=== PATIENT | male | born 1955 | race Caucasian/White ===

== ENCOUNTER 2017-05-25 18:02 | Emergency (ER) | payer BC ==
[2017-05-25] MEDS ORDERED: Aspirin 81 MG Tab.Chew PO ONE (18:17)
[2017-05-25] MEDS ORDERED: Sodium Chloride 0.9% 10 ML Syringe FLUSH PRN (18:18)
--- NOTE | 2017-05-25 18:26 | EDM.PDOC ---
ED HPI GENERAL MEDICAL PROBLEM - General Chief Complaint: Chest Pain Stated Complaint: CHEST PAIN, DIZZY Time Seen by Provider: 05/25/17 18:15 Source of Information: Reports: Patient, Old Records History Limitations: Reports: No Limitations - History of Present Illness INITIAL COMMENTS - FREE TEXT/NARRATIVE: 62 yo male presents with a complaint of chest pain since about 1630h today that began while stacking wood at work. He felt like he might pass out at times. Bryan like his heart was beating faster than usual. He was SOB, but does not report nausea or diaphoresis. He has a strong FHx of CAD, but no personal hx. He has HTN, but no DM and is not sure about cholesterol levels. He has not smoked since he was in his early 20's. Both parents and a younger brother had NV 's. He has not missed any of his BP meds lately. Onset: Today Onset Date: 05/25/17 Onset Time: 16:25 Duration: Minutes:, Improving (now with rest.) Location: Reports: Chest Quality: Reports: Pressure Severity: Moderate Improves with: Reports: Rest Worsens with: Reports: Movement (exercise) Context: Reports: Other (strong FHx of CAD) Associated Symptoms: Reports: Chest Pain, Shortness of Breath. Denies: Diaphoresis, Fever/Chills, Nausea/Vomiting, Rash Treatments EMERGENCY ROOM PHYSICIAN: Reports: Other (see below) (none) Left Chest Pain Score (Numeric/FACES): 8 - Related Data Allergies Allergy/AdvReac Type Severity Reaction Status Date / Time No Known Allergies Allergy Verified 05/25/17 18:14 Home Meds: Home Meds *Alegera 1 tab PO DAILY 02/25/13 [History] Ranitidine [Zantac] 75 mg PO DAILY 02/25/13 [History] Fluticasone Propionate [Fluticasone Propionate] 1 spray JAMES BID 04/06/15 [ History] Triamterene/Hydrochlorothiazid [Triamterene-HCTZ 37.5-25 MG] 1 tab PO DAILY [History] Past Medical History - Past Health History Medical/Surgical History: Denies Medical/Surgical History HEENT History: Reports: Allergic Rhinitis, Impaired Vision Cardiovascular History: Reports: Hypertension Gastrointestinal History: Reports: GERD Musculoskeletal History: Reports: Fracture - Infectious Disease History Infectious Disease History: Reports: Measles, Mumps - Past Surgical History HEENT Surgical History: Reports: Tonsillectomy Social & Family History - Family History HEENT: Reports: Cataract, Hearing Impairment Cardiac: Reports: CAD, Hypertension Respiratory: Reports: None : Reports: None Musculoskeletal: Reports: None - Tobacco Use Smoking Status *Q: Former Smoker Used Tobacco, but Quit: Yes Month Tobacco Last Used: 0 Second Hand Smoke Exposure: Yes - Alcohol Use Days Per Week of Alcohol Use: 0 - Recreational Drug Use Recreational Drug Use: No ED ROS GENERAL - Review of Systems Review Of Systems: See Below Constitutional: Reports: No Symptoms HEENT: Reports: No Symptoms Respiratory: Reports: Shortness of Breath. Denies: Wheezing, Pleuritic Chest Pain, Cough, Sputum, Hemoptysis Cardiovascular: Reports: Chest Pain Endocrine: Reports: No Symptoms GI/Abdominal: Reports: No Symptoms : Reports: No Symptoms Musculoskeletal: Reports: No Symptoms Skin: Reports: No Symptoms Neurological: Reports: No Symptoms Psychiatric: Reports: No Symptoms ED EXAM, GENERAL - Physical Exam Exam: See Below Exam Limited By: No Limitations General Appearance: Alert, WD/WN, No Apparent Distress Eye Exam: Bilateral Eye: Normal Inspection Ears: Normal External Exam, Normal Canal, Hearing Grossly Normal Ear Exam: Bilateral Ear: Auricle Normal, Canal Normal Nose: Normal Inspection, Normal Mucosa, No Blood Throat/Mouth: Normal Inspection, Normal Lips, Normal Oropharynx, Normal Voice, No Airway Compromise Head: Atraumatic, Normocephalic Neck: Normal Inspection Respiratory/Chest: No Respiratory Distress, Lungs Clear, Normal Breath Sounds, No Accessory Muscle Use, Chest Non-Tender Cardiovascular: Regular Rate, Rhythm, No Edema GI/Abdominal: Normal Bowel Sounds, Soft, Non-Tender, No Distention Back Exam: Normal Inspection. No: CVA Tenderness (R), CVA Tenderness (L) Extremities: Normal Inspection, Normal Range of Motion, Non-Tender, No Pedal Edema Neurological: Alert, Oriented, CN II-XII Intact, Normal Cognition, No Motor/ Sensory Deficits Psychiatric: Normal Affect, Normal Mood Skin Exam: Warm, Dry, Intact, Normal Color, No Rash Lymphatic: No Adenopathy EKG INTERPRETATION EKG Date: 05/25/17 Time: 18:00 Rhythm: NSR Rate (Beats/Min): 97 [place]: Normal P-Wave: Present QRS: Normal ST-T: Normal QT: Normal Comparison: NA - No Prior EKG EKG Interpretation Comments: unifocal PVC present. Course - Vital Signs Text/Narrative:: Dr. Blue accepted at [facility]. ALS transfer planned. Last Recorded V/S: Last Vital Signs Temp 34.7 C L 05/25/17 18:10 Pulse 92 05/25/17 19:18 Resp 16 05/25/17 18:44 BP 112/69 05/25/17 19:18 Pulse Ox 97 05/25/17 18:44 - Orders/Labs/Meds Orders: Active Orders 24 hr Category Date Time Status Cardiac Monitoring [RC] .As Directed Care 05/25/17 18:12 Active EKG Documentation Completion [RC] ASDIRECTED Care 05/25/17 18:12 Active Oxygen Therapy Adult [Oxygen Therapy, ED] [RC] Care 05/25/17 18:38 Active ASDIRECTED Chest 1V Frontal [CR] Stat Exams 05/25/17 18:18 Taken Heparin Sodium/D5W [Heparin 25,000 Units in D5W 500 ML] Med 05/25/17 19:00 Active 25,000 units in 500 ml IV TITRATE Lactated Ringers [Ringers, Lactated] 1,000 ml Med 05/25/17 19:27 Ordered IV BOLUS Nitroglycerin [Nitrostat] Med 05/25/17 18:17 Active 0.4 mg SL Q5M PRN Sodium Chloride 0.9% [Saline Flush] Med 05/25/17 18:18 Active 10 ml FLUSH ASDIRECTED PRN Saline Lock Insert [OM.PC] Routine Oth 05/25/17 18:18 Ordered EKG 12 Lead [EK] Routine Ther 05/25/17 18:12 Ordered Medication Orders Heparin Sodium/Dextrose (Heparin 25,000 Units In D5w 500 Ml) 25,000 units in 500 mls @ 20 mls/hr IV TITRATE MARTI PRN Reason: 1,000 UNITS/HR Last Admin: 05/25/17 19:17 Dose: 1,000 units/hr, 20 mls/hr Nitroglycerin (Nitrostat) 0.4 mg SL Q5M PRN PRN Reason: Chest Pain Last Admin: 05/25/17 18:38 Dose: 0.4 mg Admin: 05/25/17 18:28 Dose: 0.4 mg Sodium Chloride (Saline Flush) 10 ml FLUSH ASDIRECTED PRN PRN Reason: Keep Vein Open Last Admin: 05/25/17 18:28 Dose: 10 ml Labs: Laboratory Tests 05/25/17 05/25/17 05/25/17 Range/Units 18:18 18:31 19:00 WBC 10.6 (4.5-11.0) K/uL RBC 5.34 (4.30-5.90) M/uL Hgb 17.1 H (12.0-15.0) g/dL Hct 49.4 (40.0-54.0) % MCV 93 (80-98) fL MCH 32 H (27-31) pg MCHC 35 (32-36) % Plt Count 249 (150-400) K/uL Sodium 142 (140-148) mmol/L Potassium 3.6 (3.6-5.2) mmol/L Chloride 104 (100-108) mmol/L Carbon Dioxide 25 (21-32) mmol/L Anion Gap 13.5 (5.0-14.0) mmol/L BUN 17 (7-18) mg/dL Creatinine 1.3 (0.8-1.3) mg/dL Est Cr Clr Drug Dosing 60.43 mL/min Estimated GFR (MDRD) 56 L (>60) Glucose 122 H (74-106) mg/dL Calcium 9.6 (8.5-10.1) mg/dL Troponin I < 0.017 (0.000-0.056) ng/mL Urine Color Yellow Urine Appearance Clear Urine pH 6.5 (4.5-8.0) Ur Specific [place] 1.015 (1.008-1.030) Urine Protein Negative (NEGATIVE) mg/dL Urine Glucose (UA) Normal (NEGATIVE) mg/dL Urine Ketones Negative (NEGATIVE) mg/dL Urine Occult Blood Negative (NEGATIVE) Urine Nitrite Negative (NEGAITVE) Urine Bilirubin Negative (NEGATIVE) Urine Urobilinogen Normal (NORMAL) mg/dL Ur Leukocyte Esterase Negative (NEGATIVE) Urine RBC Not seen (0-5) Urine WBC 0-5 (0-5) Ur Epithelial Cells Rare Amorphous Sediment Not seen Urine Bacteria Rare Urine Mucus Few Meds: Medications Generic Name Dose Route Start Last Admin Trade Name Freq PRN Reason Stop Dose Admin Heparin Sodium/Dextrose 25,000 units in 500 mls @ 20 mls/hr 02/12/18 19:00 19:17 Heparin 25,000 Units In D5w 500 Ml IV 1,000 units/hr TITRATE MARTI 20 mls/hr 1,000 UNITS/HR Administration Nitroglycerin 0.4 mg 05/25/17 18:17 05/25/17 18:38 Nitrostat SL 0.4 mg Q5M PRN Administration Chest Pain Sodium Chloride 10 ml 05/25/17 18:18 05/25/17 18:28 Saline Flush FLUSH 10 ml ASDIRECTED PRN Administration Keep Vein Open Discontinued Medications Generic Name Dose Route Start Last Admin Trade Name Freq PRN Reason Stop Dose Admin Aspirin 324 mg 05/25/17 18:17 05/25/17 18:27 Aspirin PO 05/25/17 18:18 324 mg ONETIME ONE Administration Clopidogrel Bisulfate 600 mg 05/25/17 18:57 05/25/17 19:19 Plavix PO 05/25/17 18:58 600 mg ONETIME ONE Administration Heparin Sodium (Porcine) 5,000 units 05/25/17 18:55 05/25/17 19:18 Heparin Sodium IVPUSH 05/25/17 18:56 5,000 units ONETIME ONE Administration Metoprolol Tartrate 50 mg 05/25/17 18:58 05/25/17 19:18 Lopressor PO 05/25/17 18:59 50 mg ONETIME ONE Administration Morphine Sulfate 2 mg 05/25/17 18:57 05/25/17 19:18 Morphine IVPUSH 05/25/17 18:58 2 mg ONETIME ONE Administration Departure - Departure Time of Disposition: 19:45 Disposition: DC/Tfer to Acute Hospital 02 Reason for Transfer *Q: Other Condition: Fair Clinical Impression: Unstable angina pectoris Referrals: PCP,None [Primary Care Provider] - Forms: ED Department Discharge - My Orders Last 24 Hours: My Active Orders 05/25/17 18:12 Cardiac Monitoring [RC] .As Directed EKG Documentation Completion [RC] ASDIRECTED EKG 12 Lead [EK] Routine 05/25/17 18:17 Nitroglycerin [Nitrostat] 0.4 mg SL Q5M PRN 05/25/17 18:18 Chest 1V Frontal [CR] Stat Sodium Chloride 0.9% [Saline Flush] 10 ml FLUSH ASDIRECTED PRN Saline Lock Insert [OM.PC] Routine 05/25/17 18:38 Oxygen Therapy Adult [Oxygen Therapy, ED] [RC] ASDIRECTED 05/25/17 19:00 Heparin Sodium/D5W [Heparin 25,000 Units in D5W 500 ML] 25,000 units in 500 ml IV TITRATE 05/25/17 19:27 Lactated Ringers [Ringers, Lactated] 1,000 ml IV BOLUS - Assessment/Plan Last 24 Hours: My Active Orders 05/25/17 18:12 Cardiac Monitoring [RC] .As Directed EKG Documentation Completion [RC] ASDIRECTED EKG 12 Lead [EK] Routine 05/25/17 18:17 Nitroglycerin [Nitrostat] 0.4 mg SL Q5M PRN 05/25/17 18:18 Chest 1V Frontal [CR] Stat Sodium Chloride 0.9% [Saline Flush] 10 ml FLUSH ASDIRECTED PRN Saline Lock Insert [OM.PC] Routine 05/25/17 18:38 Oxygen Therapy Adult [Oxygen Therapy, ED] [RC] ASDIRECTED 05/25/17 19:00 Heparin Sodium/D5W [Heparin 25,000 Units in D5W 500 ML] 25,000 units in 500 ml IV TITRATE 05/25/17 19:27 Lactated Ringers [Ringers, Lactated] 1,000 ml IV BOLUS
[2017-05-25] MEDS: Nitroglycerin 0.4 MG Tab.SL SL PRN ×2 (18:28→18:38)
[2017-05-25] MEDS ORDERED: Heparin Sodium 5,000 Units/ML Vial IVPUSH ONE (18:55)
[2017-05-25] MEDS ORDERED: Clopidogrel 75 MG Tab PO ONE (18:57)
[2017-05-25] MEDS ORDERED: Morphine 2 MG/ML Syringe IVPUSH ONE (18:57)
[2017-05-25] MEDS ORDERED: Metoprolol Tartrate 50 MG Tab PO ONE (18:58)
[2017-05-25] MEDS ORDERED: Heparin Sodium/D5W 25,000 UNITS/500 ML BAG IV SCH (19:00)
[2017-05-25] MEDS ORDERED: Lactated Ringers 1,000 ML IV ONE (19:27)
[2017-05-25 20:15] VITALS: BP 123/92
--- NOTE | 2017-05-26 08:43 | CR ---
Chest 1V Frontal HISTORY: chest pain COMPARISON: None FINDINGS: Portable chest, 1827 hours. Lungs appear clear and normally aerated. Cardiomediastinal silhouette is within normal limits. No vas cular redistribution or pleural fluid can be seen. Bony structures and soft tissues are unremarkable. IMPRESSION: No acute chest abnormality identified.
== END 2017-05-25 20:15 ==
LOC: JP.ED 18:02
DX: I20.0 Unstable angina (principal); K21.9 Gastro-esophageal reflux disease without esophagitis; I10 Essential (primary) hypertension; Z87.891 Personal history of nicotine dependence; Z79.899 Other long term (current) drug therapy
CPT/HCPCS: 36415; 71045; 80048; 81001; 84484; 85027; 93005; 96365; 96375; 99285; A9270; J1644; J2270; J7050; J7120

== ENCOUNTER 2018-11-30 09:34 | Emergency (ER) | payer BC, OTHER ==
[2018-11-30] MEDS ORDERED: Sodium Chloride 0.9% 10 ML Syringe FLUSH PRN (09:57)
[2018-11-30] MEDS ORDERED: Nitroglycerin 0.4 MG Tab.SL SL PRN (09:57)
[2018-11-30] MEDS ORDERED: Aspirin 81 MG Tab.Chew PO ONE (09:57)
[2018-11-30] MEDS ORDERED: Morphine 2 MG/ML Syringe IVPUSH PRN (09:57)
[2018-11-30] MEDS ORDERED: Aspirin 81 MG Tab.Chew ONE (10:02)
--- NOTE | 2018-11-30 10:06 | EDM.PDOC ---
ED HPI GENERAL MEDICAL PROBLEM - General Chief Complaint: Chest Pain Stated Complaint: CHEST PAIN, CARDIAC HISTORY Time Seen by Provider: 11/30/18 09:50 Source of Information: Reports: Patient, RN Notes Reviewed History Limitations: Reports: No Limitations - History of Present Illness INITIAL COMMENTS - FREE TEXT/NARRATIVE: 63-year-old gentleman presents to the emergency department today with complaint of chest pain, he does have a history of coronary artery disease with myocardial infarction in 2018. This particular event chest pain started early this morning around 7:30 the pain does wax and wane at this time he is chest pain-free however the pain does get intense rates it 6 out of 10. He describes a flushing sensation no diaphoresis no shortness of breath no nausea or vomiting chest Pain Score (Numeric/FACES): 6 - Related Data Allergies Allergy/AdvReac Type Severity Reaction Status Date / Time No Known Allergies Allergy Verified 11/30/18 09:45 Home Meds: Home Meds *Alegera 1 tab PO DAILY 02/25/13 [History] Ranitidine [Zantac] 75 mg PO DAILY 02/25/13 [History] Triamterene/Hydrochlorothiazid [Triamterene-HCTZ 37.5-25 MG] 1 tab PO DAILY [History] Metoprolol Tartrate 12.5 mg PO BID 11/30/18 [History] Past Medical History HEENT History: Reports: Allergic Rhinitis, Impaired Vision Cardiovascular History: Reports: CAD, Hypertension, [place], Stents Gastrointestinal History: Reports: GERD Musculoskeletal History: Reports: Fracture - Infectious Disease History Infectious Disease History: Reports: Measles, Mumps - Past Surgical History HEENT Surgical History: Reports: Tonsillectomy Social & Family History - Family History HEENT: Reports: Cataract, Hearing Impairment Cardiac: Reports: CAD, Hypertension Respiratory: Reports: None : Reports: None Musculoskeletal: Reports: None - Tobacco Use Smoking Status *Q: Never Smoker - Recreational Drug Use Recreational Drug Use: No ED ROS GENERAL - Review of Systems Review Of Systems: See Below Constitutional: Reports: No Symptoms HEENT: Reports: No Symptoms Respiratory: Reports: No Symptoms Cardiovascular: Reports: Chest Pain, Lightheadedness GI/Abdominal: Reports: No Symptoms : Reports: No Symptoms Musculoskeletal: Reports: No Symptoms Skin: Reports: No Symptoms Neurological: Reports: No Symptoms ED EXAM, GENERAL - Physical Exam Exam: See Below Exam Limited By: No Limitations General Appearance: Alert, WD/WN, No Apparent Distress Neck: Normal Inspection, Supple, Non-Tender, Full Range of Motion Respiratory/Chest: No Respiratory Distress, Lungs Clear, Normal Breath Sounds, No Accessory Muscle Use, Chest Non-Tender Cardiovascular: Regular Rate, Rhythm, No Murmur GI/Abdominal: Soft, Non-Tender Extremities: Pedal Edema Course - Vital Signs Last Recorded V/S: Last Vital Signs Temp 97.3 F 11/30/18 09:42 Pulse 51 L 11/30/18 11:18 Resp 21 H 11/30/18 11:18 BP 149/76 H 11/30/18 11:18 Pulse Ox 96 11/30/18 11:18 - Orders/Labs/Meds Orders: Active Orders 24 hr Category Date Time Status Cardiac Monitoring [RC] .As Directed Care 11/30/18 09:57 Active EKG Documentation Completion [RC] ASDIRECTED Care 11/30/18 10:00 Active Morphine Med 11/30/18 09:57 Active 2 mg IVPUSH Q10M PRN Nitroglycerin [Nitrostat] Med 11/30/18 09:57 Active 0.4 mg SL Q5M PRN Sodium Chloride 0.9% [Saline Flush] Med 11/30/18 09:57 Active 10 ml FLUSH ASDIRECTED PRN Peripheral IV Insertion Adult [OM.PC] Stat Oth 11/30/18 09:57 Ordered EKG 12 Lead [EK] Stat Ther 11/30/18 10:00 Ordered Medication Orders Morphine Sulfate (Morphine) 2 mg IVPUSH Q10M PRN PRN Reason: Chest Pain Stop: 12/01/18 09:59 Nitroglycerin (Nitrostat) 0.4 mg SL Q5M PRN PRN Reason: Chest Pain Stop: 12/01/18 09:59 Sodium Chloride (Saline Flush) 10 ml FLUSH ASDIRECTED PRN PRN Reason: Keep Vein Open Labs: Laboratory Tests 11/30/18 11/30/18 11/30/18 Range/Units 09:57 09:57 12:54 WBC 9.7 (4.5-11.0) K/uL RBC 4.54 (4.30-5.90) M/uL Hgb 14.5 D (12.0-15.0) g/dL Hct 43.3 (40.0-54.0) % MCV 95 (80-98) fL MCH 32 H (27-31) pg MCHC 34 (32-36) % Plt Count 216 (150-400) K/uL Neut % (Auto) 56 (36-66) % Lymph % (Auto) 23 L (24-44) % [place] % (Auto) 7 H (2-6) % Eos % (Auto) 15 H (2-4) % Baso % (Auto) 0 (0-1) % Sodium 140 (140-148) mmol/L Potassium 4.5 (3.6-5.2) mmol/L Chloride 106 (100-108) mmol/L Carbon Dioxide 28 (21-32) mmol/L Anion Gap 5.8 (5.0-14.0) mmol/L BUN 20 H (7-18) mg/dL Creatinine 1.4 H (0.8-1.3) mg/dL Est Cr Clr Drug Dosing 55.41 mL/min Estimated GFR (MDRD) 52 L (>60) Glucose 91 (74-106) mg/dL Calcium 9.8 (8.5-10.1) mg/dL Total Bilirubin 0.2 (0.2-1.0) mg/dL AST 31 (15-37) U/L ALT 33 (12-78) U/L Alkaline Phosphatase 83 (46-116) U/L CK-MB (CK-2) 5.3 H* (0-3.6) mg/mL Troponin I < 0.017 < 0.017 (0.000-0.056) ng/mL Total Protein 6.9 (6.4-8.2) g/dL Albumin 4.0 (3.4-5.0) g/dL Globulin 2.9 (2.3-3.5) g/dL Albumin/Globulin Ratio 1.4 (1.2-2.2) Meds: Medications Generic Name Dose Route Start Last Admin Trade Name Freq PRN Reason Stop Dose Admin Morphine Sulfate 2 mg 11/30/18 09:57 Morphine IVPUSH 12/01/18 09:59 Q10M PRN Chest Pain Nitroglycerin 0.4 mg 11/30/18 09:57 Nitrostat SL 12/01/18 09:59 Q5M PRN Chest Pain Sodium Chloride 10 ml 11/30/18 09:57 Saline Flush FLUSH ASDIRECTED PRN Keep Vein Open Discontinued Medications Generic Name Dose Route Start Last Admin Trade Name Brian PRN Reason Stop Dose Admin Aspirin 324 mg 11/30/18 09:57 11/30/18 10:06 Aspirin PO 11/30/18 09:58 324 mg ONETIME ONE Administration Aspirin Confirm 11/30/18 10:02 11/30/18 10:15 Aspirin Administered 11/30/18 10:03 Not Given Dose 324 mg .ROUTE .STFasterPants-MED ONE - Re-Assessments/Exams Free Text/Narrative Re-Assessment/Exam: 11/30/18 10:47 heart score 5 Departure - Departure Time of Disposition: 14:06 Disposition: Home, Self-Care 01 Condition: Fair Clinical Impression: Chest pain Qualifiers: Chest pain type: unspecified Qualified Code(s): R07.9 - Chest pain, unspecified Referrals: Harrison Aguayo MD [Primary Care Provider] - Forms: ED Department Discharge, ED Return to Work/School Form Additional Instructions: Please report for your stress test on Thursday the results will go to Dr. Aguayo for further evaluation please be in contact with Dr. Aguayo for the plan - My Orders Last 24 Hours: My Active Orders 11/30/18 09:57 Cardiac Monitoring [RC] .As Directed Morphine 2 mg IVPUSH Q10M PRN Nitroglycerin [Nitrostat] 0.4 mg SL Q5M PRN Sodium Chloride 0.9% [Saline Flush] 10 ml FLUSH ASDIRECTED PRN Peripheral IV Insertion Adult [OM.PC] Stat 11/30/18 10:00 EKG Documentation Completion [RC] ASDIRECTED EKG 12 Lead [EK] Stat - Assessment/Plan Last 24 Hours: My Active Orders 11/30/18 09:57 Cardiac Monitoring [RC] .As Directed Morphine 2 mg IVPUSH Q10M PRN Nitroglycerin [Nitrostat] 0.4 mg SL Q5M PRN Sodium Chloride 0.9% [Saline Flush] 10 ml FLUSH ASDIRECTED PRN Peripheral IV Insertion Adult [OM.PC] Stat 11/30/18 10:00 EKG Documentation Completion [RC] ASDIRECTED EKG 12 Lead [EK] Stat Plan: Assessment Acuity = acute Site and laterality = chest pain Etiology = unclear etiology Manifestations = none] Location of injury = Home Lab values = CBC, CMP were negative except for creatinine is slightly elevated 1.46 consistent with the chronic renal failure stage GII, troponin was negative 2, EKG demonstrates no signs of ischemia chest x-ray unremarkable Plan Because he had a heart score of 5 puts him at moderate risk I did contact his primary care office who is aware of his current situation, the plan is to set him up for a stress test Cardiolite exercise which we're able to secure for Thursday for this upcoming week his primary care provider will receive those results and he will follow up with his primary care after the stress test for further evaluation This note was dictated using [employer] voice recognition software please call with any questions on syntax or grammar.
--- NOTE | 2018-11-30 10:44 | CRLCR ---
INDICATION: Chest pain. COMPARISON: Chest x-ray dated 25 May 2017. FINDINGS: A single portable chest x-ray shows a normal cardiac silhouette. The lungs show no focal pulmonary opacities. Sharp pleural margins. No pneumothorax. IMPRESSION: No evidence of acute pulmonary abnormalities. Dictated by Arpit Bazzi MD @ 11/30/2018 10:42:02 AM Dictated by: Arpit Bazzi MD @ 11/30/2018 10:42:15 (Electronically Signed)
[2018-11-30 11:41] VITALS: BP 149/76; PULSE 51
== END 2018-11-30 14:29 | disposition home or self-care (01) ==
LOC: JP.ED 09:34
DX: R07.9 Chest pain, unspecified (principal); I10 Essential (primary) hypertension; I25.2 Old myocardial infarction; K21.9 Gastro-esophageal reflux disease without esophagitis; Z79.899 Other long term (current) drug therapy
CPT/HCPCS: 36415; 71045; 80053; 82553; 84484; 85025; 93005; 96374; 99285; A9270; 93010; 99283

== ENCOUNTER 2019-01-13 16:20 | Emergency (ER) | payer OTHER ==
[2019-01-13 16:37] VITALS: BP 181/99; PULSE 75
[2019-01-13] MEDS ORDERED: Diphtheria,Pertussis(Acell),Tetanus Vaccine 0.5 ML SDV IM ONE (16:50)
--- NOTE | 2019-01-13 17:03 | EDM.PDOC ---
ED HPI GENERAL MEDICAL PROBLEM - General Chief Complaint: Laceration Stated Complaint: LEFT MIDDLE FINGER CUT Time Seen by Provider: 01/13/19 16:45 Source of Information: Reports: Patient, RN Notes Reviewed History Limitations: Reports: No Limitations - History of Present Illness INITIAL COMMENTS - FREE TEXT/NARRATIVE: 63-year-old gentleman presents emergency department today after trauma at work he accidentally caught his digit #3 left hand in between the blade and a jesus on a band saw, he has amputated the distal aspect of this finger and the other portion of the finger is missing Left Finger-Middle Pain Score (Numeric/FACES): 9 - Related Data Allergies Allergy/AdvReac Type Severity Reaction Status Date / Time No Known Allergies Allergy Verified 01/13/19 17:02 Home Meds: Home Meds Ranitidine [Zantac] 75 mg PO DAILY 02/25/13 [History] Metoprolol Tartrate 12.5 mg PO BID 11/30/18 [History] Loratadine [Claritin] 1 tab PO DAILY 01/13/19 [History] Past Medical History HEENT History: Reports: Allergic Rhinitis, Impaired Vision Cardiovascular History: Reports: CAD, Hypertension, [place], Stents Gastrointestinal History: Reports: GERD Musculoskeletal History: Reports: Fracture - Infectious Disease History Infectious Disease History: Reports: Measles, Mumps - Past Surgical History HEENT Surgical History: Reports: Tonsillectomy Social & Family History - Family History HEENT: Reports: Cataract, Hearing Impairment Cardiac: Reports: CAD, Hypertension Respiratory: Reports: None : Reports: None Musculoskeletal: Reports: None ED ROS GENERAL - Review of Systems Review Of Systems: See Below Musculoskeletal: Reports: Hand Pain Skin: Reports: Wound Neurological: Reports: No Symptoms ED EXAM, SKIN/RASH Exam: See Below Text/Narrative:: examination of the left hand reveals an amputation of digit #3 distal tip he has approximately 3 mm of nailbed remaining there is exposed bone bleeding is controlled radial pulses +2 full range of motall digits Exam Limited By: No Limitations General Appearance: Alert, WD/WN, No Apparent Distress ED SKIN PROCEDURES - Additional/Other Procedure(s) Other (Free Text) Procedure(s): performed a digital block pain control 1.5 mL of 1% lidocaine injected along digit #3 digit was prepped and draped in the usual manner Course - Vital Signs Last Recorded V/S: Last Vital Signs Temp 96.6 F 10/03/19 17:02 Pulse 75 01/13/19 17:02 Resp 16 01/13/19 17:02 BP 181/99 H 01/13/19 17:02 Pulse Ox 97 01/13/19 17:02 - Orders/Labs/Meds Orders: Active Orders 24 hr Category Date Time Status Vaccines to be Administered [RC] PER UNIT ROUTINE Care 01/13/19 16:50 Active Meds: Medications Discontinued Medications Generic Name Dose Route Start Last Admin Trade Name Brian PRN Reason Stop Dose Admin Cefazolin Sodium 1 gm 01/13/19 17:15 01/13/19 17:28 Ancef IM 01/13/19 17:16 1 gm ONETIME ONE Administration Diphtheria/Tetanus/Acell Pertussis 0.5 ml 01/13/19 16:50 01/13/19 17:11 Adacel IM 01/13/19 16:51 0.5 ml .ONCE ONE Administration Lidocaine HCl 5 ml 01/13/19 16:50 01/13/19 17:12 Xylocaine-Mpf 1% INJECT 01/13/19 16:51 5 ml ONETIME ONE Administration Departure - Departure Time of Disposition: 17:44 Disposition: Home, Self-Care 01 Condition: Fair Clinical Impression: Amputation of finger of left hand Qualifiers: Encounter type: initial encounter Qualified Code(s): S68.119A - Complete traumatic metacarpophalangeal amputation of unspecified finger, initial encounter - Discharge Information Referrals: Harrison Aguayo MD [Primary Care Provider] - Forms: ED Department Discharge Additional Instructions: please request report to the [facility] at 9 AM in the morning. He will meet with Navneet Barr from orthopedics do not eat anything past midnight - My Orders Last 24 Hours: My Active Orders 01/13/19 16:50 Vaccines to be Administered [RC] PER UNIT ROUTINE - Assessment/Plan Last 24 Hours: My Active Orders 01/13/19 16:50 Vaccines to be Administered [RC] PER UNIT ROUTINE Plan: Assessment Acuity = acute Site and laterality = amputation digit #3 left hand distal phalange Etiology = trauma with a bandsaw Manifestations = pain Location of injury = work Lab values = x-rays describe a fracture above Plan called discussed case with orthopedics on-call at 1700 spoke with Navneet Barr kindly accepted the patient he has been given Ancef 1 g, tetanus was updated today, digital block did perform adequate pain control prescription written for hydrocodone 5/325 one tab by mouth 3 times a day per total #10he will report to [facility] at 9 AM in the morning nothing by mouth for surgical revision] This note was dictated using [employer] voice recognition software please call with any questions on syntax or grammar.
--- NOTE | 2019-01-13 17:12 | CRLCR ---
Indication: Trauma. Technique: Three views of the left 3rd finger were obtained. Comparison: None Findings: Amputation of the distal phalanx is identified at the mid-diaphysis. The joint spaces are well maintained. No other fractures are identified. Impression: Amputation of the distal phalanx of the left 3rd finger at the level of the mid diaphysis. Dictated by Krista Vann MD @ Jan 13 2019 5:10PM Signed by Dr. Krista Vann @ Jan 13 2019 5:11PM
[2019-01-13] MEDS ORDERED: ceFAZolin 1 GM Vial IM ONE (17:15)
== END 2019-01-13 18:12 | disposition home or self-care (01) ==
LOC: JP.ED 16:20
DX: S68.113A Complete traumatic metacarpophalangeal amputation of left middle finger, initial encounter (principal); Z23 Encounter for immunization; I10 Essential (primary) hypertension; K21.9 Gastro-esophageal reflux disease without esophagitis; I25.10 Atherosclerotic heart disease of native coronary artery without angina pectoris; I25.2 Old myocardial infarction; Z79.899 Other long term (current) drug therapy; W23.0XXA Caught, crushed, jammed, or pinched between moving objects, initial encounter; Y99.0 Civilian activity done for income or pay
CPT/HCPCS: 64450; 73140-F2; 90471; 90715; 96372; 99283-25; J0690; J2001

== ENCOUNTER 2020-02-07 09:04 | Day surgery (SDC) | payer OTHER ==
[~2020-02-07 09:04] MED LIST: Dextrose 5%-Lactated Ringers 1,000 ML IV SCH
[2020-02-07] MEDS ORDERED: Dextrose 5%-Lactated Ringers 1,000 ML IV SCH (09:15)
[2020-02-07] MEDS ORDERED: Midazolam 1 MG/ML 2 ML SDV ONE (09:49)
[2020-02-07] MEDS ORDERED: fentaNYL 100 MCG/2 ML SDV ONE (09:49)
[2020-02-07] MEDS ORDERED: Propofol 200 MG/20 ML SDV ONE (09:49)
[2020-02-07 12:45] VITALS: BP 171/89; PULSE 53
--- NOTE | 2020-02-14 15:45 | OR ---
DATE OF PROCEDURE: 02/07/2020 SURGEON: Lio Pagan MD PREOPERATIVE DIAGNOSIS: Indication for screening colonoscopy. POSTOPERATIVE DIAGNOSIS: Normal screening colonoscopy. OPERATIVE PROCEDURE: Flexible colonoscopy. ANESTHESIA: IV sedation. INDICATION FOR PROCEDURE: This is a 64-year-old presenting for a followup screening colonoscopy. The patient has no family or personal history of colonic neoplasia. He did have a colonoscopy in 2012, at which time he was being worked up for anemia. Plan is to proceed with colonoscopy with biopsies and/or polypectomy as indicated. Potential risks including bleeding and perforation were discussed, and the patient wishes to proceed. DETAILS OF PROCEDURE: The patient was taken to the operating room and placed in a left lateral decubitus position. IV sedation was administered, after which the initial digital rectal exam was performed and was unremarkable. Colonoscope was then passed into the rectum with retroflexion revealing uncomplicated hemorrhoidal columns. The scope was eventually passed to the level of the cecum. The prep was fairly good with only a small amount of liquid and some scattered solid stool present. To that level, no abnormalities were noted. There were no areas of colitis, no diverticula, no polyps or other signs of neoplasia. The scope was then withdrawn and the above procedure concluded. The patient was taken to the recovery room in satisfactory condition. With the absence of new symptoms or signs, the patient's next colonoscopy should be scheduled roughly in 10 years. Lio Pagan MD /[id number]
== END 2020-02-07 13:21 | disposition home or self-care (01) ==
LOC: JP.SDS 09:04
PROVIDERS: ATTEND Surgery
DX: Z12.11 Encounter for screening for malignant neoplasm of colon (principal); K64.9 Unspecified hemorrhoids; I10 Essential (primary) hypertension; I25.10 Atherosclerotic heart disease of native coronary artery without angina pectoris; K21.9 Gastro-esophageal reflux disease without esophagitis
CPT/HCPCS: 45378; J2250; J2704; J3010; J7121

== ENCOUNTER 2022-03-13 13:13 | Emergency (ER) | payer MEDICARE ==
[2022-03-13 13:53] VITALS: BP 183/94; PULSE 51
[2022-03-13] MEDS ORDERED: Ketorolac 30 MG/ML SDV IM ONE (14:20)
== END 2022-03-13 14:41 | disposition home or self-care (01) ==
LOC: JP.ED 13:13
DX: M54.50 Low back pain, unspecified (principal); I25.10 Atherosclerotic heart disease of native coronary artery without angina pectoris; I10 Essential (primary) hypertension; I25.2 Old myocardial infarction; K21.9 Gastro-esophageal reflux disease without esophagitis; Z87.891 Personal history of nicotine dependence; Z79.82 Long term (current) use of aspirin; Z79.899 Other long term (current) drug therapy
CPT/HCPCS: 81001; 96372; 99283

== ENCOUNTER 2022-03-24 04:55 | Emergency (ER) | payer MEDICARE ==
[2022-03-24] MEDS ORDERED: Sodium Chloride 0.9% 10 ML Syringe FLUSH PRN (05:00)
[2022-03-24] MEDS: Nitroglycerin 0.4 MG Tab.SL SL PRN ×2 (05:20→05:30)
[2022-03-24 05:30] LABS: ESTIMATED GFR 44 mL/min (>60); TROPONIN I HIGH SENSITIVITY 9.4 pg/mL (<=60.3)
[2022-03-24 05:49] LABS: CORONAVIRUS COVID-19 NAA NEGATIVE (NEGATIVE)
[2022-03-24 07:09] VITALS: PULSE 53
[2022-03-24 08:32] VITALS: BP 146/75
== END 2022-03-24 08:49 | disposition home or self-care (01) ==
LOC: JP.ED 04:55
DX: I25.10 Atherosclerotic heart disease of native coronary artery without angina pectoris (principal); R07.89 Other chest pain; I10 Essential (primary) hypertension; I25.2 Old myocardial infarction; Z79.82 Long term (current) use of aspirin; Z20.822 Contact with and (suspected) exposure to COVID-19
CPT/HCPCS: 0241U; 36415; 71046; 80053; 84484; 85025; 85610; 85730; 93005; 99285; A9270; J3490

== ENCOUNTER 2022-06-25 03:30 | Emergency (ER) | payer MEDICARE ==
[~2022-06-25 03:30] MED LIST changes: -Dextrose 5%-Lactated Ringers 1,000 ML IV SCH; +Ketorolac 30 MG/ML SDV IVPUSH ONE
[2022-06-25] MEDS ORDERED: Ketorolac 30 MG/ML SDV ONE (04:13)
[2022-06-25] MEDS ORDERED: Sodium Chloride 0.9% 1,000 ML IV SCH (04:15)
[2022-06-25] MEDS ORDERED: Ketorolac 30 MG/ML SDV IVPUSH ONE (04:15)
[2022-06-25 06:02] VITALS: BP 141/90; PULSE 91
[2022-06-25] MEDS ORDERED: Iopamidol 612 MG/ML 100 ML Bottle IV ONE (06:12)
[2022-06-25] MEDS ORDERED: Sodium Chloride 0.9% 10 ML Syringe FLUSH ONE (06:12)
[2022-06-25] MEDS ORDERED: Sodium Chloride 0.9% 50 ML IV ONE (06:12)
[2022-06-25 06:31] LABS: ESTIMATED GFR 41 mL/min (>60); TROPONIN I HIGH SENSITIVITY 34.6 pg/mL (<=60.3)
[2022-06-25] MEDS ORDERED: Sodium Chloride 0.9% 10 ML Syringe FLUSH PRN (06:32)
== END 2022-06-25 07:11 | disposition home or self-care (01) ==
LOC: JP.ED 05:41
DX: K29.70 Gastritis, unspecified, without bleeding (principal); F17.200 Nicotine dependence, unspecified, uncomplicated
CPT/HCPCS: 36415; 74177; 80053; 84484; 85025; 96361; 96374; 99283; 99284; J1885; J3490; J7030; Q9967

== ENCOUNTER 2022-11-07 07:47 | Day surgery (SDC) | payer MEDICARE ==
[~2022-11-07 07:47] MED LIST changes: -Ketorolac 30 MG/ML SDV IVPUSH ONE; +Midazolam 1 MG/ML 2 ML SDV ONE; +Propofol 200 MG/20 ML SDV ONE; +fentaNYL 50 MCG/ML SDV ONE
[2022-11-07] MEDS ORDERED: Lactated Ringers 1,000 ML IV SCH (08:15)
[2022-11-07] MEDS ORDERED: Lactated Ringers 500 ML IV SCH (11:15)
[2022-11-07] MEDS ORDERED: Sodium Chloride 0.9% 75 ML IV ONE (11:42)
[2022-11-07] MEDS ORDERED: Sodium Chloride 0.9% 10 ML Syringe FLUSH PRN (11:42)
[2022-11-07] MEDS ORDERED: Iopamidol 755 Mg/ML 100 ML Bottle IV SCH (11:45)
[2022-11-07 12:19] VITALS: BP 146/86; PULSE 50
== END 2022-11-07 13:15 | disposition home or self-care (01) ==
LOC: JP.SDS 07:47
PROVIDERS: ATTEND Student in an Organized Health Care Education/Training Program
DX: K29.50 Unspecified chronic gastritis without bleeding (principal); K31.5 Obstruction of duodenum; K64.4 Residual hemorrhoidal skin tags; I25.10 Atherosclerotic heart disease of native coronary artery without angina pectoris; K21.9 Gastro-esophageal reflux disease without esophagitis; I25.2 Old myocardial infarction; I10 Essential (primary) hypertension
CPT/HCPCS: 43239; 45378; 74174; 88305; J2250; J2704; J3010; J3490; J7120; Q9967

== ENCOUNTER 2022-12-19 19:10 | Emergency (ER) | payer MEDICARE ==
[2022-12-19] MEDS ORDERED: Sodium Chloride 0.9% 1,000 ML IV STA (19:31)
[2022-12-19] MEDS ORDERED: Ondansetron 4 MG/2 ML SDV IVPUSH ONE (19:31)
[2022-12-19] MEDS ORDERED: fentaNYL 100 MCG/2 ML SDV IVPUSH ONE (19:31)
[2022-12-19] MEDS ORDERED: Sodium Chloride 0.9% 10 ML Syringe FLUSH PRN (19:31)
[2022-12-19 19:44] LABS: BASOPHILS ABSOLUTE AUTO 0.04 K/uL (0.00-0.10); BASOPHILS PERCENT AUTO 0.5 % (0.1-1.3); EOSINOPHILS ABSOLUTE AUTO 0.52 K/uL (0.00-0.40); HEMATOCRIT 42.2 % (38.4-49.7); HEMOGLOBIN 14.3 g/dL (12.9-16.9); IMMATURE GRAN ABSOLUTE AUTO 0.03 K/uL (0.00-0.23); IMMATURE GRAN PERCENT AUTO 0.4 % (0.0-0.7); LYMPHOCYTES ABSOLUTE AUTO 1.63 K/uL (0.8-3.3); LYMPHOCYTES PERCENT AUTO 21.8 % (11.4-47.7); MEAN CORPUSCULAR HEMOGLOBIN 31.1 pg (31.6-35.5); MEAN CORPUSCULAR HGB CONC 33.9 g/dL (31.6-35.5); MEAN CORPUSCULAR VOLUME 91.7 fL (81.4-99.0); MONOCYTES ABSOLUTE AUTO 0.59 K/uL (0.20-0.90); MONOCYTES PERCENT AUTO 7.9 % (3.3-12.6); NEUTROPHILS ABSOLUTE AUTO 4.66 K/uL (1.0-7.6); NEUTROPHILS PERCENT AUTO 62.4 % (40.0-78.1); PLATELET COUNT,PLT 189 K/uL (130-375); WHITE BLOOD CELL COUNT,WBC 7.5 K/uL (3.2-11.0)
[2022-12-19 20:15] LABS: ALANINE AMINOTRANSFERASE,ALT 32 U/L (12-78); ALBUMIN 3.8 g/dL (3.4-5.0); ALKALINE PHOSPHATASE 137 U/L (46-116); ANION GAP 11.1 mmol/L (5.0-14.0); ASPARTATE AMNIOTRANSFERASE,AST 33 U/L (15-37); BILIRUBIN TOTAL 0.4 mg/dL (0.2-1.0); BLOOD UREA NITROGEN,BUN 17 mg/dL (7-18); CALCIUM 9.4 mg/dL (8.5-10.1); CARBON DIOXIDE,CO2 26 mmol/L (21-32); CHLORIDE,CL 104 mmol/L (100-108); CREATININE 1.7 mg/dL (0.8-1.3); EST CRCL DRUG DOSING (CG) 43.32 mL/min; ESTIMATED GFR 44 mL/min (>60); GLUCOSE RANDOM 94 mg/dL (74-106); POTASSIUM,K 3.9 mmol/L (3.6-5.2); PROTEIN TOTAL,TP 7.5 g/dL (6.4-8.2); SODIUM,NA 141 mmol/L (140-148)
[2022-12-19] MEDS ORDERED: Iopamidol 612 MG/ML 100 ML Bottle IV SCH (20:30)
[2022-12-19] MEDS ORDERED: Sodium Chloride 0.9% 50 ML IV SCH (20:30)
[2022-12-19 21:05] LABS: APPEARANCE,URINE CLEAR (CLEAR); BILIRUBIN,URINE NEGATIVE (NEGATIVE); COLOR,URINE YELLOW (YELLOW); GLUCOSE,URINE NEGATIVE (NEGATIVE); KETONES,URINE NEGATIVE (NEGATIVE); LEUKOCYTE ESTERASE,URINE NEGATIVE (NEGATIVE); NITRITE,URINE NEGATIVE (NEGATIVE); OCCULT BLOOD,URINE NEGATIVE (NEGATIVE); PROTEIN,URINE NEGATIVE (NEGATIVE); UROBILINOGEN,URINE 0.2 EU/dL (0.2-1.0)
[2022-12-19 21:08] LABS: AMORPHOUS SEDIMENT,URINE NOT SEEN; BACTERIA,URINE RARE; EPITHELIAL CELLS,URINE RARE; MUCUS,URINE RARE; RBC,URINE 0-5 (0-5); WBC,URINE 0-5 (0-5)
[2022-12-19] MEDS ORDERED: fentaNYL 50 MCG/ML SDV ONE (21:41)
[2022-12-19] MEDS ORDERED: Ondansetron 4 MG/2 ML SDV ONE (21:41)
[2022-12-19 22:11] VITALS: BP 137/82; PULSE 53
== END 2022-12-19 22:21 | disposition home or self-care (01) ==
LOC: JP.ED 19:10
DX: R10.13 Epigastric pain (principal); I10 Essential (primary) hypertension; I25.2 Old myocardial infarction; I25.10 Atherosclerotic heart disease of native coronary artery without angina pectoris; K21.9 Gastro-esophageal reflux disease without esophagitis; Z79.01 Long term (current) use of anticoagulants; Z86.16 Personal history of COVID-19; Z79.82 Long term (current) use of aspirin; Z79.899 Other long term (current) drug therapy
CPT/HCPCS: 36415; 74177; 80053; 81001; 83605; 83690; 84484; 85025; 96374; 96375; 99284; J2405; J3010; J3490; J7030; Q9967

== ENCOUNTER 2022-12-24 19:32 | Emergency (ER) | payer OTHER, MEDICARE ==
[2022-12-24 19:49] VITALS: BP 171/109; PULSE 65
[2022-12-24 20:16] LABS: BASOPHILS ABSOLUTE AUTO 0.05 K/uL (0.00-0.10); BASOPHILS PERCENT AUTO 0.6 % (0.1-1.3); EOSINOPHILS ABSOLUTE AUTO 0.34 K/uL (0.00-0.40); HEMATOCRIT 42.5 % (38.4-49.7); HEMOGLOBIN 14.4 g/dL (12.9-16.9); IMMATURE GRAN ABSOLUTE AUTO 0.06 K/uL (0.00-0.23); IMMATURE GRAN PERCENT AUTO 0.7 % (0.0-0.7); LYMPHOCYTES ABSOLUTE AUTO 1.36 K/uL (0.8-3.3); LYMPHOCYTES PERCENT AUTO 16.1 % (11.4-47.7); MEAN CORPUSCULAR HEMOGLOBIN 30.5 pg (31.6-35.5); MEAN CORPUSCULAR HGB CONC 33.9 g/dL (31.6-35.5); MONOCYTES ABSOLUTE AUTO 0.56 K/uL (0.20-0.90); MONOCYTES PERCENT AUTO 6.6 % (3.3-12.6); PLATELET COUNT,PLT 210 K/uL (130-375); RED BLOOD CELL COUNT 4.72 M/uL (4.14-5.76); WHITE BLOOD CELL COUNT,WBC 8.5 K/uL (3.2-11.0)
[2022-12-24 20:40] LABS: CALCIUM 9.8 mg/dL (8.5-10.1); CREATININE 1.8 mg/dL (0.8-1.3); EST CRCL DRUG DOSING (CG) 40.91 mL/min
== END 2022-12-24 22:01 | disposition home or self-care (01) ==
LOC: JP.ED 19:32
DX: S50.312A Abrasion of left elbow, initial encounter (principal); S80.212A Abrasion, left knee, initial encounter; S60.511A Abrasion of right hand, initial encounter; I25.10 Atherosclerotic heart disease of native coronary artery without angina pectoris; I25.2 Old myocardial infarction; K21.9 Gastro-esophageal reflux disease without esophagitis; I10 Essential (primary) hypertension; Z79.899 Other long term (current) drug therapy; Z79.82 Long term (current) use of aspirin; Z86.16 Personal history of COVID-19; V28.49XA Other motorcycle driver injured in noncollision transport accident in traffic accident, initial encounter
CPT/HCPCS: 36415; 71101-26-LT; 71101-LT; 73080-26-LT; 73080-LT; 73130-26-RT; 73130-RT; 73502-26-LT; 73502-LT; 73562-26-LT; 73562-LT; 80048; 85025; 99283

== ENCOUNTER 2022-12-29 00:12 | Emergency (ER) | payer OTHER, MEDICARE ==
[2022-12-29] MEDS ORDERED: Ketorolac 15 MG/ML SDV IM ONE (00:30)
[2022-12-29 02:05] VITALS: BP 135/85; PULSE 82
== END 2022-12-29 01:48 | disposition home or self-care (01) ==
LOC: JP.ED 00:12
DX: S22.42XG Multiple fractures of ribs, left side, subsequent encounter for fracture with delayed healing (principal); I25.10 Atherosclerotic heart disease of native coronary artery without angina pectoris; I25.2 Old myocardial infarction; I10 Essential (primary) hypertension; K21.9 Gastro-esophageal reflux disease without esophagitis; Z86.16 Personal history of COVID-19; Z79.01 Long term (current) use of anticoagulants; Z95.5 Presence of coronary angioplasty implant and graft; Z79.82 Long term (current) use of aspirin; Z79.899 Other long term (current) drug therapy; V29.99XD Rider (driver) (passenger) of other motorcycle injured in unspecified traffic accident, subsequent encounter
CPT/HCPCS: 71250; 96372; 99285; J1885

== ENCOUNTER 2023-07-08 16:04 | Emergency (ER) | payer MEDICARE ==
[2023-07-08] MEDS ORDERED: Sodium Chloride 0.9% 10 ML Syringe FLUSH PRN (16:48)
[2023-07-08] MEDS ORDERED: Morphine 4 MG/ML Syringe IVPUSH PRN (16:48)
[2023-07-08] MEDS ORDERED: Nitroglycerin 0.4 MG Tab.SL SL PRN (16:48)
[2023-07-08 16:56] LABS: BASOPHILS ABSOLUTE AUTO 0.06 K/uL (0.00-0.10); BASOPHILS PERCENT AUTO 0.8 % (0.1-1.3); EOSINOPHILS ABSOLUTE AUTO 0.23 K/uL (0.00-0.40); EOSINOPHILS PERCENT AUTO 2.9 % (0.0-5.4); HEMATOCRIT 43.4 % (38.4-49.7); HEMOGLOBIN 14.6 g/dL (12.9-16.9); IMMATURE GRAN PERCENT AUTO 1.3 % (0.0-0.7); LYMPHOCYTES ABSOLUTE AUTO 2.25 K/uL (0.8-3.3); LYMPHOCYTES PERCENT AUTO 28.8 % (11.4-47.7); MEAN CORPUSCULAR HEMOGLOBIN 29.2 pg (31.6-35.5); MEAN CORPUSCULAR HGB CONC 33.6 g/dL (31.6-35.5); MEAN CORPUSCULAR VOLUME 86.8 fL (81.4-99.0); MONOCYTES ABSOLUTE AUTO 0.63 K/uL (0.20-0.90); MONOCYTES PERCENT AUTO 8.1 % (3.3-12.6); NEUTROPHILS ABSOLUTE AUTO 4.55 K/uL (1.0-7.6); NEUTROPHILS PERCENT AUTO 58.1 % (40.0-78.1); PLATELET COUNT,PLT 294 K/uL (130-375); WHITE BLOOD CELL COUNT,WBC 7.8 K/uL (3.2-11.0)
[2023-07-08 17:09] LABS: ALANINE AMINOTRANSFERASE,ALT 28 U/L (12-78); ALBUMIN 4.3 g/dL (3.4-5.0); ALKALINE PHOSPHATASE 151 U/L (46-116); ANION GAP 14.1 mmol/L (5.0-14.0); ASPARTATE AMNIOTRANSFERASE,AST 24 U/L (15-37); BILIRUBIN TOTAL 0.4 mg/dL (0.2-1.0); BLOOD UREA NITROGEN,BUN 12 mg/dL (7-18); CALCIUM 9.9 mg/dL (8.5-10.1); CARBON DIOXIDE,CO2 23 mmol/L (21-32); CHLORIDE,CL 103 mmol/L (100-108); CREATININE 1.6 mg/dL (0.8-1.3); EST CRCL DRUG DOSING (CG) 45.41 mL/min; ESTIMATED GFR 47 mL/min (>60); GLUCOSE RANDOM 105 mg/dL (74-106); POTASSIUM,K 3.6 mmol/L (3.6-5.2); PROTEIN TOTAL,TP 8.5 g/dL (6.4-8.2); SODIUM,NA 140 mmol/L (140-148); TROPONIN I HIGH SENSITIVITY 8.5 pg/mL (<=60.3)
[2023-07-08] MEDS: Ketorolac 30 MG/ML SDV IVPUSH ONE (17:49)
[2023-07-08] MEDS: Aspirin 81 MG Tab.Chew PO ONE (17:49)
[2023-07-08 18:25] VITALS: BP 152/89; PULSE 48
== END 2023-07-08 18:57 | disposition home or self-care (01) ==
LOC: JP.ED 16:04
DX: R07.89 Other chest pain (principal); I10 Essential (primary) hypertension; I25.2 Old myocardial infarction; I25.10 Atherosclerotic heart disease of native coronary artery without angina pectoris; Z79.2 Long term (current) use of antibiotics; Z79.82 Long term (current) use of aspirin; Z79.899 Other long term (current) drug therapy; Z87.891 Personal history of nicotine dependence
CPT/HCPCS: 36415; 71045; 71045-26; 80053; 83605; 84484; 85025; 93005; 93010; 96374; 99283; 99285-25; A9270-GY; J1885

== ENCOUNTER 2023-10-09 18:22 | Emergency (ER) | payer MEDICARE ==
[2023-10-09 18:53] LABS: BASOPHILS ABSOLUTE AUTO 0.03 K/uL (0.00-0.10); BASOPHILS PERCENT AUTO 0.5 % (0.1-1.3); EOSINOPHILS PERCENT AUTO 1.7 % (0.0-5.4); HEMATOCRIT 40.9 % (38.4-49.7); HEMOGLOBIN 14.2 g/dL (12.9-16.9); IMMATURE GRAN ABSOLUTE AUTO 0.01 K/uL (0.00-0.23); IMMATURE GRAN PERCENT AUTO 0.2 % (0.0-0.7); LYMPHOCYTES ABSOLUTE AUTO 1.53 K/uL (0.8-3.3); LYMPHOCYTES PERCENT AUTO 25.4 % (11.4-47.7); MEAN CORPUSCULAR HEMOGLOBIN 29.6 pg (31.6-35.5); MEAN CORPUSCULAR HGB CONC 34.7 g/dL (31.6-35.5); MEAN CORPUSCULAR VOLUME 85.4 fL (81.4-99.0); MONOCYTES ABSOLUTE AUTO 0.54 K/uL (0.20-0.90); NEUTROPHILS ABSOLUTE AUTO 3.81 K/uL (1.0-7.6); NEUTROPHILS PERCENT AUTO 63.2 % (40.0-78.1); PLATELET COUNT,PLT 202 K/uL (130-375); RED BLOOD CELL COUNT 4.79 M/uL (4.14-5.76)
[2023-10-09 19:16] LABS: A/G RATIO 1.1 (1.2-2.2); ALANINE AMINOTRANSFERASE,ALT 28 U/L (12-78); ALBUMIN 4.1 g/dL (3.4-5.0); ALKALINE PHOSPHATASE 120 U/L (46-116); ANION GAP 18.3 mmol/L (5.0-14.0); ASPARTATE AMNIOTRANSFERASE,AST 27 U/L (15-37); BILIRUBIN TOTAL 0.6 mg/dL (0.2-1.0); BLOOD UREA NITROGEN,BUN 13 mg/dL (7-18); CALCIUM 9.5 mg/dL (8.5-10.1); CARBON DIOXIDE,CO2 20 mmol/L (21-32); CHLORIDE,CL 106 mmol/L (100-108); CREATININE 1.6 mg/dL (0.8-1.3); EST CRCL DRUG DOSING (CG) 45.41 mL/min; ESTIMATED GFR 47 mL/min (>60); GLUCOSE RANDOM 131 mg/dL (74-106); POTASSIUM,K 3.3 mmol/L (3.6-5.2); SODIUM,NA 141 mmol/L (140-148); TROPONIN I HIGH SENSITIVITY 9.6 pg/mL (<=60.3)
[2023-10-09] MEDS: Aspirin 81 MG Tab.Chew PO ONE (19:17)
[2023-10-09] MEDS: Nitroglycerin 0.4 MG Tab.SL SL PRN (19:30)
[2023-10-09] MEDS: Alum Hydrox/Mag Hydrox/Simeth 15 ML, Lidocaine 2% 15 ML PO ONE (19:44)
[2023-10-09] MEDS: Metoprolol Tartrate 25 MG Tab PO ONE (19:50)
[2023-10-09] MEDS ORDERED: Famotidine 20 MG Tab PO ONE (20:59)
[2023-10-09 21:01] VITALS: BP 142/84; PULSE 55
== END 2023-10-09 21:32 | disposition home or self-care (01) ==
LOC: JP.ED 18:22
DX: K21.9 Gastro-esophageal reflux disease without esophagitis (principal); R07.89 Other chest pain; I25.119 Atherosclerotic heart disease of native coronary artery with unspecified angina pectoris; I10 Essential (primary) hypertension; I25.2 Old myocardial infarction; Z95.1 Presence of aortocoronary bypass graft; Z79.82 Long term (current) use of aspirin; Z79.899 Other long term (current) drug therapy
CPT/HCPCS: 36415; 71045; 80053; 84484; 85025; 93005; 99285; A9270

== ENCOUNTER 2024-01-08 00:04 | Emergency (ER) | payer MEDICARE ==
[2024-01-08 00:59] LABS: BASOPHILS ABSOLUTE AUTO 0.03 K/uL (0.00-0.10); BASOPHILS PERCENT AUTO 0.3 % (0.1-1.3); EOSINOPHILS ABSOLUTE AUTO 0.08 K/uL (0.00-0.40); EOSINOPHILS PERCENT AUTO 0.9 % (0.0-5.4); HEMATOCRIT 41.3 % (38.4-49.7); HEMOGLOBIN 14.5 g/dL (12.9-16.9); IMMATURE GRAN ABSOLUTE AUTO 0.03 K/uL (0.00-0.23); IMMATURE GRAN PERCENT AUTO 0.3 % (0.0-0.7); LYMPHOCYTES ABSOLUTE AUTO 1.33 K/uL (0.8-3.3); LYMPHOCYTES PERCENT AUTO 14.6 % (11.4-47.7); MEAN CORPUSCULAR HEMOGLOBIN 30.1 pg (31.6-35.5); MEAN CORPUSCULAR HGB CONC 35.1 g/dL (31.6-35.5); MEAN CORPUSCULAR VOLUME 85.9 fL (81.4-99.0); MONOCYTES ABSOLUTE AUTO 0.48 K/uL (0.20-0.90); MONOCYTES PERCENT AUTO 5.3 % (3.3-12.6); NEUTROPHILS ABSOLUTE AUTO 7.15 K/uL (1.0-7.6); NEUTROPHILS PERCENT AUTO 78.6 % (40.0-78.1); PLATELET COUNT,PLT 205 K/uL (130-375); RED BLOOD CELL COUNT 4.81 M/uL (4.14-5.76); WHITE BLOOD CELL COUNT,WBC 9.1 K/uL (3.2-11.0)
[2024-01-08] MEDS: Metoprolol Tartrate 25 MG Tab PO ONE (01:01)
[2024-01-08 01:25] LABS: A/G RATIO 1.1 (1.2-2.2); ALANINE AMINOTRANSFERASE,ALT 26 U/L (12-78); ALBUMIN 4.3 g/dL (3.4-5.0); ALKALINE PHOSPHATASE 129 U/L (46-116); ANION GAP 12.7 mmol/L (5.0-14.0); ASPARTATE AMNIOTRANSFERASE,AST 26 U/L (15-37); BILIRUBIN TOTAL 0.5 mg/dL (0.2-1.0); BLOOD UREA NITROGEN,BUN 15 mg/dL (7-18); CALCIUM 9.9 mg/dL (8.5-10.1); CARBON DIOXIDE,CO2 23 mmol/L (21-32); CHLORIDE,CL 106 mmol/L (100-108); CREATININE 1.7 mg/dL (0.8-1.3); EST CRCL DRUG DOSING (CG) 42.74 mL/min; ESTIMATED GFR 44 mL/min (>60); GLUCOSE RANDOM 151 mg/dL (74-106); POTASSIUM,K 3.7 mmol/L (3.6-5.2); PROTEIN TOTAL,TP 8.1 g/dL (6.4-8.2); SODIUM,NA 142 mmol/L (140-148)
[2024-01-08 01:34] VITALS: BP 146/96; PULSE 79
== END 2024-01-08 01:40 | disposition home or self-care (01) ==
LOC: JP.ED 00:04
DX: I10 Essential (primary) hypertension (principal); I25.10 Atherosclerotic heart disease of native coronary artery without angina pectoris; I25.2 Old myocardial infarction; Z95.5 Presence of coronary angioplasty implant and graft; Z87.891 Personal history of nicotine dependence; Z79.82 Long term (current) use of aspirin; Z79.899 Other long term (current) drug therapy
CPT/HCPCS: 36415; 80053; 84443; 85025; 99283; A9270

== ENCOUNTER 2024-01-12 16:05 | Emergency (ER) | payer MEDICARE ==
[2024-01-12] MEDS: Metoprolol Tartrate 25 MG Tab PO ONE (17:09)
[2024-01-12] MEDS: Aspirin 81 MG Tab.Chew PO ONE (17:10)
[2024-01-12 17:18] LABS: BASOPHILS ABSOLUTE AUTO 0.04 K/uL (0.00-0.10); BASOPHILS PERCENT AUTO 0.7 % (0.1-1.3); EOSINOPHILS ABSOLUTE AUTO 0.05 K/uL (0.00-0.40); EOSINOPHILS PERCENT AUTO 0.8 % (0.0-5.4); HEMOGLOBIN 14.2 g/dL (12.9-16.9); IMMATURE GRAN PERCENT AUTO 0.3 % (0.0-0.7); LYMPHOCYTES ABSOLUTE AUTO 1.29 K/uL (0.8-3.3); LYMPHOCYTES PERCENT AUTO 21.4 % (11.4-47.7); MEAN CORPUSCULAR HEMOGLOBIN 30.1 pg (31.6-35.5); MEAN CORPUSCULAR HGB CONC 34.6 g/dL (31.6-35.5); MONOCYTES ABSOLUTE AUTO 0.48 K/uL (0.20-0.90); MONOCYTES PERCENT AUTO 7.9 % (3.3-12.6); NEUTROPHILS ABSOLUTE AUTO 4.16 K/uL (1.0-7.6); NEUTROPHILS PERCENT AUTO 68.9 % (40.0-78.1); PLATELET COUNT,PLT 192 K/uL (130-375); RED BLOOD CELL COUNT 4.71 M/uL (4.14-5.76)
[2024-01-12 17:19] LABS: IMMATURE GRAN ABSOLUTE AUTO 0.02 K/uL (0.00-0.23)
[2024-01-12 17:41] LABS: A/G RATIO 1.2 (1.2-2.2); ALANINE AMINOTRANSFERASE,ALT 22 U/L (12-78); ALBUMIN 4.2 g/dL (3.4-5.0); ALKALINE PHOSPHATASE 125 U/L (46-116); ANION GAP 9.2 mmol/L (5.0-14.0); ASPARTATE AMNIOTRANSFERASE,AST 21 U/L (15-37); BILIRUBIN TOTAL 0.6 mg/dL (0.2-1.0); BLOOD UREA NITROGEN,BUN 10 mg/dL (7-18); CARBON DIOXIDE,CO2 27 mmol/L (21-32); CHLORIDE,CL 107 mmol/L (100-108); CREATININE 1.5 mg/dL (0.8-1.3); EST CRCL DRUG DOSING (CG) 48.44 mL/min; ESTIMATED GFR 51 mL/min (>60); GLUCOSE RANDOM 93 mg/dL (74-106); POTASSIUM,K 4.2 mmol/L (3.6-5.2); PROTEIN TOTAL,TP 7.8 g/dL (6.4-8.2); SODIUM,NA 143 mmol/L (140-148); TROPONIN I HIGH SENSITIVITY 11.4 pg/mL (<=60.3)
[2024-01-12 18:01] VITALS: BP 152/90; PULSE 56
== END 2024-01-12 18:25 | disposition home or self-care (01) ==
LOC: JP.ED 16:05
DX: R07.89 Other chest pain (principal); I10 Essential (primary) hypertension; I25.10 Atherosclerotic heart disease of native coronary artery without angina pectoris; I25.2 Old myocardial infarction; Z95.5 Presence of coronary angioplasty implant and graft; Z79.899 Other long term (current) drug therapy; Z91.148 Patient's other noncompliance with medication regimen for other reason
CPT/HCPCS: 36415; 80053; 84484; 85025; 99284; A9270

== ENCOUNTER 2024-03-22 02:58 | Emergency (ER) | payer MEDICARE ==
[2024-03-22 03:18] VITALS: BP 145/81; PULSE 64
[2024-03-22 03:26] LABS: BASOPHILS ABSOLUTE AUTO 0.05 K/uL (0.00-0.10); BASOPHILS PERCENT AUTO 0.6 % (0.1-1.3); EOSINOPHILS ABSOLUTE AUTO 0.17 K/uL (0.00-0.40); HEMATOCRIT 40.6 % (38.4-49.7); HEMOGLOBIN 13.8 g/dL (12.9-16.9); IMMATURE GRAN ABSOLUTE AUTO 0.03 K/uL (0.00-0.23); IMMATURE GRAN PERCENT AUTO 0.3 % (0.0-0.7); LYMPHOCYTES PERCENT AUTO 28.9 % (11.4-47.7); MEAN CORPUSCULAR VOLUME 88.3 fL (81.4-99.0); MONOCYTES ABSOLUTE AUTO 0.78 K/uL (0.20-0.90); NEUTROPHILS ABSOLUTE AUTO 5.11 K/uL (1.0-7.6); NEUTROPHILS PERCENT AUTO 59.2 % (40.0-78.1); PLATELET COUNT,PLT 204 K/uL (130-375); WHITE BLOOD CELL COUNT,WBC 8.6 K/uL (3.2-11.0)
[2024-03-22 03:51] LABS: ANION GAP 17.2 mmol/L (5.0-14.0); CREATININE 1.5 mg/dL (0.8-1.3); EST CRCL DRUG DOSING (CG) 46.23 mL/min; POTASSIUM,K 3.2 mmol/L (3.6-5.2); TROPONIN I HIGH SENSITIVITY 7.2 pg/mL (<=60.3)
== END 2024-03-22 05:40 | disposition home or self-care (01) ==
LOC: JP.ED 02:58
DX: R07.9 Chest pain, unspecified (principal); I25.10 Atherosclerotic heart disease of native coronary artery without angina pectoris; I25.2 Old myocardial infarction; Z95.5 Presence of coronary angioplasty implant and graft; Z90.89 Acquired absence of other organs; Z87.891 Personal history of nicotine dependence; Z79.82 Long term (current) use of aspirin; Z79.899 Other long term (current) drug therapy
CPT/HCPCS: 36415; 71045; 71045-26; 80048; 84484; 85025; 85379; 93005; 93010; 99283; 99285